=== PATIENT | male | born 1980 | race Asian ===

== ENCOUNTER 2022-07-25 15:27 | Emergency (ER) | payer BC ==
[2022-07-25 15:33] VITALS: BP 116/89; PULSE 75; RESP 18; TEMP 97.9; BMI 27.6
[2022-07-25] MEDS ORDERED: CLINDAMYCIN HCL 150 MG CAPSULE (FP) PO ONE (16:15)
[2022-07-25] MEDS ORDERED: CLINDAMYCIN HCL 150 MG CAPSULE (FP) ONE (16:18)
== END 2022-07-25 16:46 | disposition home or self-care (01) ==
LOC: JER 15:27
DX: L03.313 Cellulitis of chest wall (principal); L02.213 Cutaneous abscess of chest wall
CPT/HCPCS: 99283-25